=== PATIENT | male | born 1945 | race Caucasian/White ===

== ENCOUNTER → 2018-01-28 | Outpatient (CLI) | payer MEDICARE ==
--- NOTE | 2018-01-28 15:14 | CT ---
EXAMINATION TYPE: CT sinus wo con DATE OF EXAM: 01/28/2018 COMPARISON: 09/22/2011 HISTORY: Patient complains of sinus infection unresponsive to treatment x3 months. CT DLP: 610 mGycm CONTRAST: None The paranasal sinuses are examined in the axial plane at 2 mm thick sections. Reconstructed images i n the coronal plane were obtained. There is dental amalgam scatter artifact The maxillary sinuses are clear. The ethmoid air cells are clear. The sphenoid sinuses are clear. The frontal sinuses are clear. The septum is evaluated. There is septal deviation to the left. There are prior uncinectomies and ethmoidectomies. Minimal residual mucosal thickening may be within the ethmoid air spaces. No fractures are evident. IMPRESSIONS: 1. Postsurgical changes within the ethmoid air cell region in the uncinate processes. 2. No suspicious acute sinus disease. Minimal residual mucosal thickening may be within ethmoid air c ells spaces. 3. Incidental note is made of prominence of the right carotid siphon which may has some bulging into the right sphenoid sinus superiorly.
== END | disposition home or self-care (01) ==
LOC: RADCTMAIN 14:18
PROVIDERS: ATTEND Otolaryngology
DX: J32.9 Chronic sinusitis, unspecified (principal); Z98.890 Other specified postprocedural states
CPT/HCPCS: 70486

== ENCOUNTER 2018-04-22 08:05 | Day surgery (SDC) | payer MEDICARE ==
[2018-04-09 15:06] VITALS: BMI 30.8
[~2018-04-22 08:05] MED LIST: LACTATED RINGERS 1,000 ML IV SCH
[2018-04-22 08:58] VITALS: RESP 16; TEMP 98.3
[2018-04-22] MEDS ORDERED: PROPOFOL 10 MG/ML 20 ML VIAL IV ONE (09:08)
--- NOTE | 2018-04-22 09:11 | P.GSHP ---
History of Present Illness H&P Date: 04/22/18 Chief Complaint: Constipation, diarrhea, possible colitis 's is a 72-year-old male referred from Dr. Melton. Patient's had issues with intermittent constipation and diarrhea. He presents today for colonoscopy today for possible colitis. 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 History of Any Multi-Drug Resistant Organisms: None Reported Past Surgical History: Back Surgery Additional Past Surgical History / Comment(s): RT CATARACT, RICKEY KNEE SCOPE, JAW SX, BENIGN CYST REMOVED ON ARM Past Anesthesia/Blood Transfusion Reactions: No Reported Reaction Smoking Status: Never smoker Medications and Allergies Home Medications Medication Instructions Recorded Confirmed Type Allergy Relief 1 tab PO DAILY 04/09/18 04/09/18 History Losartan Potassium 100 mg PO HS 04/09/18 04/09/18 History Montelukast [Singulair] 10 mg PO DAILY 04/09/18 04/09/18 History Simvastatin 40 mg PO DAILY 04/09/18 04/09/18 History Allergies Allergy/AdvReac Type Severity Reaction Status Date / Time erythromycin base Allergy Rash/Hives Verified 04/22/18 08:48 Surgical - Exam Vital Signs Temp Pulse Resp BP Pulse Ox 98.3 F 68 16 164/88 100 04/22/18 08:57 04/22/18 08:57 04/22/18 08:57 04/22/18 08:57 04/22/18 08:57 - General well developed, no distress - Eyes PERRL - ENT normal pinna - Neck no masses - Respiratory normal expansion - Cardiovascular Rhythm: regular - Abdomen Abdomen: soft, non tender Assessment and Plan Assessment: History of diarrhea and constipation. We'll perform colonoscopy.
--- NOTE | 2018-04-22 09:21 | P.OP ---
Date of Procedure: 04/22/18 Preoperative Diagnosis: Diarrhea Constipation Postoperative Diagnosis: Normal colon Procedure(s) Performed: Colonoscopy Anesthesia: MAC Surgeon: Benton Kendrick Pathology: none sent Condition: stable Disposition: PACU Description of Procedure: PROCEDURE: The patient was placed on the endoscopy table in the lateral position. Digital rectal examination was performed which revealed no abnormalities. The prostate was symmetrical without nodules. Flexible colonoscope was then placed in the patient's anus and passed throughout the entire colon. The ileocecal valve was visualized. The cecum, ascending, transverse, descending and sigmoid colon were normal. The rectum was normal as well. There were no masses, polyps or diverticula noted in the entire colon. SUMMARY OF FINDINGS: Normal colonoscopy.
[2018-04-22 09:50] VITALS: BP 123/85; PULSE 63
== END 2018-04-22 10:03 | disposition home or self-care (01) ==
LOC: ORWHC2ENDO 08:05
PROVIDERS: ATTEND Surgery
DX: R19.7 Diarrhea, unspecified (principal); K59.00 Constipation, unspecified; E78.5 Hyperlipidemia, unspecified; I10 Essential (primary) hypertension; J45.990 Exercise induced bronchospasm; Z86.010 Personal history of colon polyps; Z79.899 Other long term (current) drug therapy; Z88.1 Allergy status to other antibiotic agents
CPT/HCPCS: 45378; J2704

== ENCOUNTER → 2022-12-26 | Outpatient (CLI) | payer MEDICARE ==
--- NOTE | 2022-12-26 09:18 | CT ---
EXAMINATION TYPE: CT sinus wo con DATE OF EXAM: 12/26/2022 COMPARISON: 01/28/2018 HISTORY: 77-year-old male R05.3 Chronic cough, J32.[address] DLP: 599 mGycm Automated exposure control for dose reduction was used. TECHNIQUE: Noncontrast axial views of the paranasal sinuses were obtained. Coronal and sagittal refor matted images were obtained from the axial views for evaluation of nasal cavity, osteomeatal complex and skull base integrity. FINDINGS: PARANASAL SINUSES: Redemonstrated bilateral medial maxillary antrectomies and resection changes extending up into the et hmoid air cells. Mild mucosal thickening within the right maxillary sinus has increased. Trace within the left maxilla ry sinus is similar. Mild to moderate mucosal thickening throughout the residual ethmoid air cells appears slightly increa sed. Frontal and sphenoid sinuses appear clear. Redemonstrated is tortuosity of the right carotid siphon a nd medial course of the clinoid segment right ICA causing some focal indentation of the posterior wal l of the right sphenoid sinus. There is no air-fluid level. Reactive hill- osteogenesis is not seen. There is no destruction of the osseous lópez of the paranasal sinuses. THE NASAL CAVITY: The osteomeatal complexes are widely patent due to prior surgery. Slight leftward nasal septal deviation. The imaged brain shows mild generalized volume loss. Orbits and globes are intact. The visualized mastoid air cells and middle ear cavities are well pneumatized. Reformatted images confirm above findings. 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 Mild to moderate mucosal thickening within the residua l ethmoid air cells is slightly increased. Mild mucosal thickening right maxillary sinus has increase d. Trace mucosal thickening left maxillary sinus is similar.
--- NOTE | 2022-12-26 10:13 | CT ---
EXAMINATION TYPE: CT chest w con DATE OF EXAM: 12/26/2022 COMPARISON: CT scan 02/27/2011 HISTORY: Chronic cough, chronic maxillary sinusitis CT DLP: 804 mGycm Automated exposure control for dose reduction was used. TECHNIQUE: CT scan of the chest is performed with IV Contrast, patient injected with 100 ml mL of Isovue 300. M IP Images are created on CT scanner and reviewed. 3D reconstructed images are created on an [employer] workstation and reviewed. FINDINGS: LUNGS: There is a 2 mm nodule axial image 29 right middle lobe lobe. There is a calcified nodule subpleural location measuring 2 mm axial image 22 superior segment right lower lobe. There is a larger calcified subpleural nodule measuring 6 mm superior segment left lower lobe axial i mage 27 There is a 1 mm nodule anterior segment inferior margin right upper lobe axial image 34 [place] there is a 4 mm nodule left lower lobe axial image 38 There is interlobular septal thickening at the lung bases with groundglass changes most likely in the basis of atelectasis. No pleural effusion or pneumothorax. Elevated right hemidiaphragm. MEDIASTINUM: There are no greater than 1 cm hilar or mediastinal lymph nodes. No pericardial effusi on is seen. There is a borderline right hilar lymph node measuring short axis of 9 mm stable compare d to prior CT scan. Mild coronary artery calcification noted. Aorta of normal caliber with mild ather osclerotic changes. OTHER: Hypertrophic and degenerative changes of the spine. A multiple level Schmorl's nodes seen and there is a mild superior endplate compression fracture near the thoracolumbar junction which appears chronic. IMPRESSION: 1. Groundglass changes seen within the posterior lower lobes most likely in the basis of atelectasis correlate clinically to exclude a pneumonitis. 2. There are multiple bilateral less than 5 mm pulmonary nodules too small to characterize, however, some have calcification suggestive of granuloma. These are felt to most likely be on a benign etiolog y but should be followed with a 12 month follow-up CT scan. 3. Suspect mild interstitial pulmonary fibrosis UIP type inferior margin lung bases. 4. Nonspecific borderline right hilar lymphadenopathy
== END | disposition home or self-care (01) ==
LOC: RADCTMAIN 07:43
PROVIDERS: ATTEND Internal Medicine
DX: J32.0 Chronic maxillary sinusitis (principal); J34.89 Other specified disorders of nose and nasal sinuses; R91.8 Other nonspecific abnormal finding of lung field
CPT/HCPCS: 82565; 84520; 71260; 36415; 70486; Q9967

== ENCOUNTER 2023-01-02 11:01 | Day surgery (SDC) | payer MEDICARE ==
[2023-01-02] MEDS: LACTATED RINGERS 1,000 ML IV SCH ×2 (11:30→11:46)
[2023-01-02 11:36] VITALS: TEMP 97.1
[2023-01-02] MEDS ORDERED: LIDOCAINE 2% INJ 20 MG/ML INTRATRACH ONE ×2 (12:02→12:26)
[2023-01-02] MEDS ORDERED: LIDOCAINE 2% INJ 20 MG/ML (2 ML VIAL) ONE (12:10)
[2023-01-02] MEDS ORDERED: KETAMINE 10 MG/ML 20 ML VIAL ONE (12:10)
[2023-01-02] MEDS ORDERED: GLYCOPYRROLATE 0.2 MG/ML 2 ML VIAL ONE (12:10)
[2023-01-02] MEDS ORDERED: PROPOFOL 10 MG/ML 20 ML VIAL IV ONE (12:10)
[2023-01-02 12:44] VITALS: RESP 20
[2023-01-02 13:24] VITALS: BP 158/89; PULSE 89
--- NOTE | 2023-01-02 18:46 | OP ---
OPERATIVE REPORT DATE OF SERVICE : PROCEDURES PERFORMED: Bronchoscopy and random bronchoalveolar lavage and bronchial washings from both lungs. PREOPERATIVE DIAGNOSIS: Chronic cough. POSTOPERATIVE DIAGNOSES: Chronic cough and tracheobronchomalacia. ANESTHESIA USED: The patient was given IV conscious sedation. DESCRIPTION OF PROCEDURE: The patient was brought into the bronchoscopy suite. He was placed in the supine position. O2 was applied via Ventimask. We monitored his O2 saturation continuously. Blood pressure was intermittently monitored, and cardiac rhythm was continuously monitored. After adequate IV conscious sedation, the bronchoscope was inserted through a bite block which was applied; however, the patient kept moving the bite block with his tongue. Then, I went to the left naris, and the bronchoscope was advanced through the left naris down to the area of the vocal cords. There was evidence of purulent secretions noted around the vocal cords. The epiglottis was noted to be edematous and a bit swollen. However, I was able to visualize the vocal cords quite well. Lidocaine was applied over the vocal cords, and the bronchoscope was advanced further down to the trachea. The trachea was noted to be quite bronchitic. There was significant swelling in the mucosa, and this mucosa was also noted to be hyperemic. Purulent secretions were noted at the distal trachea. These were suctioned. Then, a thorough examination was done of the right upper lobe, right middle lobe, right lower lobe, left upper lobe, lingula, and left lower lobe. A random bronchoalveolar lavage was done from the different lobes, and washings were done from the right upper lobe, right middle lobe, right lower lobe, left upper lobe, lingula, and left lower lobe. The washings were sent for different diagnostic studies. Procedure was tolerated. No complications. Discussed the findings with the . MMODL / IJN: [id number] /
[2023-01-02 23:29] LABS: Appearance,BF Cloudy
== END 2023-01-02 13:38 | disposition home or self-care (01) ==
LOC: ORWHC2ENDO 11:01
PROVIDERS: ATTEND Internal Medicine
DX: J45.909 Unspecified asthma, uncomplicated (principal); I10 Essential (primary) hypertension; E78.5 Hyperlipidemia, unspecified; J44.9 Chronic obstructive pulmonary disease, unspecified; N40.0 Benign prostatic hyperplasia without lower urinary tract symptoms; Z79.899 Other long term (current) drug therapy
CPT/HCPCS: 89050; 87252; 87070; 87205; 87116; 87102; 87206; 31624; J2001 ×2; J2704; 87496; 87498; 87502; 87529; 87634; 87798; 88108; 88305

== ENCOUNTER 2023-02-10 08:58 | Day surgery (SDC) | payer MEDICARE ==
[2023-02-10 09:24] VITALS: TEMP 97.5
[2023-02-10] MEDS ORDERED: PROPOFOL 10 MG/ML 20 ML VIAL IV ONE (09:42)
[2023-02-10] MEDS ORDERED: LIDOCAINE 2% INJ 20 MG/ML (2 ML VIAL) ONE (09:42)
--- NOTE | 2023-02-10 09:50 | P.PCN ---
Date of Procedure: 02/10/23 Procedure(s) Performed: BRIEF HISTORY: Patient is a 77-year-old, pleasant, white male scheduled for an upper endoscopy as a part of evaluation of throat irritation and excessive phlegm for the last 1 year duration. He was recently started on PPI for 6 weeks with no help. PROCEDURE PERFORMED: Esophagogastroduodenoscopy with biopsy. PREOPERATIVE DIAGNOSIS: . Throat Irritation and excessive phlegm of 1 day duration. IV sedation per anesthesia. PROCEDURE: After informed consent was obtained, the patient was brought into the endoscopy unit. IV sedation was administered by Anesthesia under continuous monitoring. Initially the Olympus GIF-140 video endoscope was inserted into the mouth. Esophagus intubated without any difficulty. It was gradually advanced into the stomach and duodenum and carefully examined. The bulb and the second part of the duodenum appeared normal. The scope at this time was withdrawn to the stomach, adequately insufflated with air, and upon careful examination, mucosa of the antrum, patchy areas of linear erythema that was biopsied. Mucosa of the body, cardia and the fundus appeared normal. The scope was then withdrawn into the esophagus. The GE junction was located at 43 cm from the incisors. The esophagus appeared normal. There were no erosions or ulcerations seen , biopsies were done from the mid and distal esophagus and the patient tolerated the procedure well. IMPRESSION: 1.. Normal-appearing esophagus with no evidence of esophagitis. 2. Mild antral gastritis. RECOMMENDATIONS: The findings of this examination were discussed with the patient as well as his family. He was advised to follow with the biopsy results. Continue with her current PPI for total of 3 months to see for any improvement in symptoms. Follow up in office as needed
[2023-02-10 10:30] VITALS: BP 129/75; PULSE 55; RESP 17
== END 2023-02-10 10:45 | disposition home or self-care (01) ==
LOC: ORWHC2ENDO 08:58
PROVIDERS: ATTEND Internal Medicine Gastroenterology
DX: K29.50 Unspecified chronic gastritis without bleeding (principal); K20.90 Esophagitis, unspecified without bleeding; I10 Essential (primary) hypertension; E78.5 Hyperlipidemia, unspecified; J44.9 Chronic obstructive pulmonary disease, unspecified; Z79.899 Other long term (current) drug therapy
CPT/HCPCS: 43239; J2704; J2001; 88305; 88342

== ENCOUNTER → 2023-06-01 | Outpatient (CLI) | payer MEDICARE ==
--- NOTE | 2023-06-01 14:32 | CT ---
EXAMINATION TYPE: CT chest wo con DATE OF EXAM: 06/01/2023 COMPARISON: 12/26/2022 HISTORY: cough CT DLP: 1697.6 mGycm. Automated Exposure Control for Dose Reduction was Utilized. TECHNIQUE: High resolution CT scan of the thorax is performed without IV contrast. FINDINGS: LUNGS: There is a stable 2 mm nodule right middle lobe lobe. There is a stable calcified nodule subpleural location measuring 2 mm superior segment right lower lo be. There is a stable calcified subpleural nodule measuring 6 mm superior segment left lower lobe. There is a 1 mm nodule anterior segment inferior margin right upper. There is a 4 mm nodule left lower lobe stable. There is interlobular septal thickening at the lung bases with groundglass changes most likely in the basis of atelectasis. No pleural effusion or pneumothorax. Elevated right hemidiaphragm. There is no pleural effusion or pneumothorax seen. The tracheobronchial tree is patent. There is a c entral and basilar mild bronchiectasis with peribronchial wall thickening correlate for chronic bronc hitis. Mild emphysematous changes. Subsegmental areas of scattered scarring or atelectasis noted. There is mild interlobular septal thickening along the periphery of bilateral lower lobes likely repr esenting mild UIP type pulmonary fibrosis. MEDIASTINUM: There are no greater than 1 cm hilar or mediastinal lymph nodes. No pericardial effusion is seen. There is a borderline right hilar lymph node measuring short axis of 9 mm stable compared t o prior CT scan. Calcification in the mediastinum and hilum likely related small calcified lymph node s. Mild coronary artery calcification noted. Aorta of normal caliber with mild atherosclerotic change s. OTHER: Hypertrophic and degenerative changes of the spine. A multiple level Schmorl's nodes seen and there is a mild superior endplate compression fracture near the thoracolumbar junction which appears chronic IMPRESSION: 1. Stable subcentimeter pulmonary nodules. Mild emphysematous changes and mild basilar bronchiectasis noted. Peribronchial wall thickening can be associated with a bronchitis or bronchiolitis correlate clinically. 2. Very mild basilar interlobular septal thickening suggestive of mild interstitial pulmonary fibrosi s UIP type. 3. Chronic granulomatous disease.
== END | disposition home or self-care (01) ==
LOC: RADCTMAIN 11:01
PROVIDERS: ATTEND Internal Medicine
DX: J43.9 Emphysema, unspecified (principal); D71 Functional disorders of polymorphonuclear neutrophils; J98.4 Other disorders of lung; J47.9 Bronchiectasis, uncomplicated; R91.8 Other nonspecific abnormal finding of lung field
CPT/HCPCS: 71250

== ENCOUNTER → 2023-06-09 | Outpatient (CLI) | payer MEDICARE ==
--- NOTE | 2023-06-10 09:05 | MR ---
EXAMINATION TYPE: MR lumbar spine wo con DATE OF EXAM: 06/09/2023 COMPARISON: HISTORY: Low back pain, Hx back surgery 40 yrs ago, Radiculopathy TECHNIQUE: Multiplanar, multisequence images of the lumbar spine were acquired without IV contrast. L1-L2: Mild loss of height involving L1 superior endplate is nonacute in nature. There is mild disc d esiccation seen without significant disc bulge. No evidence for central stenosis or foraminal encroac hment. L2 hemangioma noted as well as L1 hemangioma. L2-L3: Mild disc desiccation without significant disc bulge. No central stenosis. No foraminal encroa chment. Mild joint arthropathy. L3-L4: Mild disc desiccation without significant disc bulge. No central stenosis. No foraminal encroa chment. Mild joint arthropathy. L4-L5: Severe disc desiccation with Modic type I endplate changes seen. There is a posterior disc bul ge with effacement of the ventral thecal sac. Hypertrophy of the ligamentum flavum and facet joint ar thropathy contribute to mild to moderate central stenosis. Moderate bilateral foraminal encroachment. L5-S1: Grade 1 anterolisthesis L5 on S1 measuring 7.6 mm. Severe disc desiccation L5-S1. Severe facet joint arthropathy. No evidence for disc herniation. No central stenosis. Moderate bilateral foramina l encroachment. Lumbar segments are intact. No paraspinal masses are identified. Conus medullaris has a normal appe arance. IMPRESSION: 1. Multilevel degenerative disc disease. 2. 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 3. Neural foraminal encroachment L4-5 and L5-S1.
== END | disposition home or self-care (01) ==
LOC: RADMRIMAIN 20:45
PROVIDERS: ATTEND Specialist
DX: M51.16 Intervertebral disc disorders with radiculopathy, lumbar region (principal); M48.061 Spinal stenosis, lumbar region without neurogenic claudication
CPT/HCPCS: 72148

== ENCOUNTER → 2023-06-09 | Outpatient (CLI) | payer MEDICARE ==
--- NOTE | 2023-06-09 10:56 | XR ---
EXAMINATION TYPE: XR lumbar spine with bend/flex DATE OF EXAM: 06/09/2023 9:49 AM INDICATION: Patient age:Male; 77 years old; Reason for study: M54.16 RADICULOPATHY, LUMBAR REGION; PHH. COMPARISON: None TECHNIQUE: Frontal, lateral , bilateral oblique and coned in L5-S1 lateral views of the spine. Bendin g and flexion views obtained. FINDINGS: Grade 2 anterolisthesis of L5 on S1. Bilateral spondylolysis. There is at least moderate ne ural foraminal stenosis at L5-S1. The remainder of the spine is within normal limits for alignment. D isc spaces appearing worse at L4-L5 and L5-S1. Multilevel osteophyte formation and facet joint arthro megan. Spinal canal is at least mild to moderately narrowed at L5-S1. Vertebral body of L1 is mild we dging. No abnormal alignment on bending and flexion views. IMPRESSION: 1. No acute fracture. 2. Grade 1 anterolisthesis of L5 on S1 with spondylolysis suggested with at least moderate neural for aminal stenosis.
== END | disposition home or self-care (01) ==
LOC: RADXRMAIN 09:29
PROVIDERS: ATTEND Specialist
DX: M43.16 Spondylolisthesis, lumbar region (principal); M47.26 Other spondylosis with radiculopathy, lumbar region; M99.73 Connective tissue and disc stenosis of intervertebral foramina of lumbar region
CPT/HCPCS: 72114

== ENCOUNTER → 2023-09-21 | Outpatient (CLI) | payer MEDICARE ==
[2023-09-21 16:46] LABS: Immunoglobulin M 90.5 mg/dL (40.0-280.0)
== END | disposition home or self-care (01) ==
LOC: LABWHC1 10:02
PROVIDERS: ATTEND Internal Medicine
DX: J32.9 Chronic sinusitis, unspecified (principal)
CPT/HCPCS: 36415; 82784; 82787

== ENCOUNTER → 2024-01-05 | Outpatient (CLI) | payer MEDICARE ==
[2024-01-05 19:44] LABS: Anti-DNA, DS unit <1.0 IU/mL; Anti-Smith Ab Interp Negative (Negative); DNA Double-Stranded Negative (Negative)
[2024-01-05 22:27] LABS: Cyclic Citrull Pep IgG Unit <1.5 U/mL (<=3.9); Cyclic Citrullinated Pep IgG Negative
== END | disposition home or self-care (01) ==
LOC: LABWHC1 12:38
PROVIDERS: ATTEND Internal Medicine Pulmonary Disease
DX: J84.9 Interstitial pulmonary disease, unspecified (principal)
CPT/HCPCS: 36415; 86038; 86200; 86225; 86235; 86431